=== PATIENT | male | born 1965 | race Caucasian/White ===

== ENCOUNTER 2020-06-08 16:04 | Emergency (ER) | payer MEDICAID ==
--- NOTE | 2020-06-08 17:05 | ED Physician Documentation ---
PD HPI LOWER EXT INJURY - Stated complaint Stated Complaint: L FOOT PX - Chief complaint Chief Complaint: Ext Problem - History obtained from History obtained from: Patient - History of Present Illness PD HPI LOW EXT INJURY LOCATION: Left, Foot Type of injury: Blunt / blow Where injury occurred: Home Timing - onset: Last night Worsened by: Moving, Palpating Associated symptoms: Swelling, Other (ecchymosis). No: Weakness, Numbness, Tingling Similar symptoms before: Diagnosis, No diagnosis - Additional information Additional information: 55-year-old male here with left foot pain bruising and swelling after accidentally tripping and striking his left foot on a hard concrete floor last night. He did not fall and he did not have any loss of consciousness. No history of previous injury to this foot. Unable to bear weight. Review of Systems Constitutional: denies: Fever, Chills Cardiac: denies: Chest pain / pressure, Palpitations Respiratory: denies: Dyspnea, Cough GI: denies: Abdominal Pain, Abdominal Swelling Skin: reports: Other (Ecchymosis left foot) Musculoskeletal: reports: Extremity pain, Extremity swelling PD PAST MEDICAL HISTORY - Past Medical History Past Medical History: No - Past Surgical History Past Surgical History: No - Present Medications Home Medications: Ambulatory Orders Medication Instructions Recorded Confirmed Hydrocodone/Acetaminophen 1 each PO BID PRN #14 tablet 06/08/20 [Hydrocodon-Acetaminophen 5-325] - Allergies Allergies/Adverse Reactions: Allergies Allergy/AdvReac Type Severity Reaction Status Date / Time No Known Drug Allergies Allergy Verified 06/08/20 16:13 - Social History Does the pt smoke?: No Smoking Status: Never smoker Does the pt have substance abuse?: No - Immunizations Immunizations are current?: No PD ED PE NORMAL - Cardiac Cardiac: RRR, No murmur - Respiratory Respiratory: No respiratory distress - Extremities Extremities: No deformity. No: No tenderness to palpate, Normal ROM s pain (T enderness ecchymosis swelling over dorsum of left foot predominantly over the fourth and fifth metatarsals. 2+ DP pulse full range of motion of ankle. Unable to bear weight on left foot ) Results - Vitals Vitals: Vital Signs - 24 hr 06/08/20 16:10 Temperature 36.3 C L Heart Rate 52 L Respiratory 18 Rate Blood Pressure 127/94 H O2 Saturation 97 Oxygen O2 Source Room air - Rads (name of study) left foot Radiology: EMP read indepedently (Transverse left fifth metatarsal fracture) PD MEDICAL DECISION MAKING - ED course Complexity details: reviewed results, d/w patient ED course: 55-year-old male here with left foot pain after accidentally striking his foot and tripping on the hard concrete floor. X-ray shows a transverse left fifth metatarsal fracture. Patient will be placed in a 3 sidedFoot splint. We will refer him to orthopedics for follow-up. Advised to be nonweightbearing. Emergent return precautions discussed for concerns of foot numbness or tingling. Of cold extremity or fevers. Departure - Departure Disposition: Home, Self Care Clinical Impression: Metatarsal fracture Qualifiers: Encounter type: initial encounter Metatarsal bone: fifth Fracture type: closed Fracture alignment: nondisplaced Laterality: left Qualified Code(s): S92.355A - Nondisplaced fracture of fifth metatarsal bone, left foot, initial encounter for closed fracture Condition: Stable Record reviewed to determine appropriate education?: Yes Instructions: ED Fx Foot Ch, ED Crutch Walking Follow-Up: [facility] [Provider Group] Prescriptions: Hydrocodone/Acetaminophen [Hydrocodon-Acetaminophen 5-325] 1 each PO BID PRN #14 tablet PRN Reason: pain Comments: Chase the fifth metatarsal in your left foot is fractured. We have placed you in a splint. This must remain clean and dry. If it gets wet return to the [facility] department to have it replaced. If you develop a cold foot, have numbness or tingling then presented again to have the splint reevaluated. You are to be nonweightbearing on this foot until evaluated by the orthopedic doctors. Please call tomorrow to schedule follow-up appointment. I would recommend ibuprofen or Tylenol [id number] for pain control. I have prescribed a very limited number of [place] to be used for severe pain only. Do not drive if taking this medication
--- NOTE | 2020-06-08 17:05 | XRAY Report ---
PROCEDURE: Foot 3 View LT INDICATIONS: kicked concrete; r/o fx TECHNIQUE: 3 views of the foot were acquired. COMPARISON: None. FINDINGS: Bones: No dislocations but there is a diagonal fracture involving the distal diaphysis of the fifth metatarsal, mildly displaced but without abnormal angulation. No additional injury elsewhere is seen. . No suspicious bony lesions. Soft tissues: No tibiotalar joint effusion. Achilles tendon appears normal. IMPRESSION: Mildly displaced distal fifth metatarsal diaphyseal acute fracture, diagonal, which does not appear t o extend into the articular surface of the MT-P joint. Reviewed by: Emiliano Arrieta MD on 06/08/2020 5:04 PM PDT Approved by: Emiliano Arrieta MD on 06/08/2020 5:04 PM PDT Station ID: [id number]
[2020-06-08 17:46] VITALS: BP 125/75
== END 2020-06-08 17:56 | disposition home or self-care (01) ==
LOC: ED 16:04
DX: S92.352A Displaced fracture of fifth metatarsal bone, left foot, initial encounter for closed fracture (principal); W22.09XA Striking against other stationary object, initial encounter; Y93.01 Activity, walking, marching and hiking; Y92.009 Unspecified place in unspecified non-institutional (private) residence as the place of occurrence of the external cause
CPT/HCPCS: 99283

== ENCOUNTER 2020-12-15 16:29 | Outpatient (CLI) | payer OTHER | END 2020-12-15 16:30 | disposition home or self-care (01) | LOC: COV 16:29 | PROVIDERS: ATTEND Family Medicine | DX: R05 Cough (principal); R09.81 Nasal congestion; J34.89 Other specified disorders of nose and nasal sinuses; Z20.822 Contact with and (suspected) exposure to COVID-19 ==

== ENCOUNTER 2021-05-08 11:24 | Emergency (ER) | payer OTHER ==
[2021-05-08] MEDS ORDERED: LIDOCAINE 1% 2 ML VIAL MC ONE (11:43)
[2021-05-08] MEDS ORDERED: TETANUS/DIPHTHERIA/PERTUSSIS 0.5 ML SYRINGE IM ONE (11:43)
[2021-05-08] MEDS ORDERED: BUFFERED LIDOCAINE 10 ML SYRINGE SUBQ STA (11:43)
[2021-05-08] MEDS ORDERED: cefTRIAXone 1 GM VIAL IM STA (11:43)
--- NOTE | 2021-05-08 11:45 | ED Physician Documentation ---
History of Present Illness - Stated complaint Stated Complaint: RT FINGER INJ - Chief complaint Chief Complaint: Laceration - Additonal information Additional information: 56-year-old male presents to the emergency department for evaluation of right index finger laceration sustained 48 hours ago when using hedge tremors at home. He has a laceration about 1 cm long right directly over the PIP. He is unsure how deep the laceration was. He cleansed it with hydrogen peroxide and has been applying Neosporin. However since then he has had progressive swelling and erythema of the finger with increased pain as well as swelling extending to the dorsum of the palm. Last tetanus 2012. Nondiabetic. Patient is right-hand dominant. Review of Systems Constitutional: reports: Reviewed and negative Ears: reports: Reviewed and negative Nose: reports: Reviewed and negative Throat: reports: Reviewed and negative Cardiac: reports: Reviewed and negative Respiratory: reports: Reviewed and negative GI: reports: Reviewed and negative : reports: Reviewed and negative Skin: reports: Laceration (s) (PIP right index finger) Musculoskeletal: reports: Reviewed and negative Neurologic: reports: Reviewed and negative PD PAST MEDICAL HISTORY - Past Surgical History Past Surgical History: No - Present Medications Home Medications: Ambulatory Orders Medication Instructions Recorded Confirmed Hydrocodone/Acetaminophen 1 each PO BID PRN #14 tablet 06/08/20 [Hydrocodon-Acetaminophen 5-325] cephALEXin [Keflex] 500 mg PO Q6H #28 05/08/21 - Allergies Allergies/Adverse Reactions: Allergies Allergy/AdvReac Type Severity Reaction Status Date / Time No Known Drug Allergies Allergy Verified 05/08/21 11:34 - Social History Does the pt smoke?: No Smoking Status: Never smoker Does the pt have substance abuse?: No - Immunizations Immunizations are current?: No PD ED PE EXPANDED - General General: Alert, No acute distress - Extremities Extremities: Right finger(s) (1.5 cm laceration over PIP right index finger with associated surrounding erythema and induration extending to the DIP and MCP. Swelling of dorsum of hand also included. Patient is able to flex and extend against resistance at MCP PIP and DIP joints) Results - Vitals Vitals: Vital Signs - 24 hr 05/08/21 11:29 Temperature 37.0 C Heart Rate 63 Respiratory 16 Rate Blood Pressure 132/82 H O2 Saturation 100 Oxygen O2 Source Room air - Rads (name of study) right finger Radiology: Final report received (Soft tissue swelling of the right index finger without associated fracture radial take soft tissue foreign body) Procedures - General procedure General procedure: Using 1% lidocaine a right index finger digital block was Achieved. Once the finger was properly anesthetized I was able to thoroughly wash and irrigate the laceration. Laceration was viewed to the bed no visible tendon injury seen. Wound was cleansed with Betadine saline and closed with bacitracin nonstick pad and gauze. Wound will require closure by secondary intention PD MEDICAL DECISION MAKING - ED course Complexity details: reviewed results, re-evaluated patient, d/w patient ED course: 56-year-old male presents the emergency department for right index finger pain and swelling at the site of a laceration sustained when using hedge tremors 48 hours ago. He is able to fully flex and extend the finger though it is painful. At this time however not suspicious of a tendon injury. His tetanus was updated today. The finger was properly anesthetized and the wound was thoroughly cleansed with Betadine chlorhexidine and irrigated thoroughly with saline. He was given ceftriaxone here in the emergency department and will be prescribed Keflex for 7 days. Wound will require closure by secondary intention. Emergent return precautions were discussed for failure of the wound to properly heal or increasing swelling and redness. Departure - Departure Disposition: 01 Home, Self Care Clinical Impression: Cellulitis of finger of right hand Finger laceration Qualifiers: Encounter type: initial encounter Finger: index finger Damage to nail status: without damage Foreign body presence: without foreign body Laterality: right Qualified Code(s): S61.210A - Laceration without foreign body of right index finger without damage to nail, initial encounter Condition: Stable Record reviewed to determine appropriate education?: Yes Instructions: Cellulitis Dc Prescriptions: cephALEXin [Keflex] 500 mg PO Q6H #28 Comments: Chase fuller the finger laceration has become infected. This is called cellulitis. You were given an injection of ceftriaxone here in the emergency department today. Please fill the prescription for the cephalexin and begin taking this evening as directed. You have increased pain because of the infection. With the appropriate antibiotics I do expect pain swelling and redness to be improving over the next 36 to 48 hours. If worsening or not improving please return to the ER for a second evaluation. Please keep your hand clean and dry. Wash the finger with warm soap and water once a day apply antibiotic ointment to the wound and then a bandage. This will require closure by secondary intention which just means the skin will have to heal itself. This will likely take 1 to 2 weeks
[2021-05-08] MEDS ORDERED: BACITRACIN ZINC OINT 1 PACKET TOP STA (12:05)
--- NOTE | 2021-05-08 12:14 | XRAY Report ---
PROCEDURE: Finger(s) RT INDICATIONS: laceration; eval for fx or FB TECHNIQUE: AP hand, 3 views of the right finger(s) acquired. COMPARISON: None FINDINGS: Bones: No acute fractures or dislocations. No suspicious bony lesions. Soft tissues: No suspicious soft tissue calcifications. There is soft tissue swelling. No radiopaque soft tissue foreign bodies. IMPRESSION: Soft tissue swelling of the right index finger without associated fracture or radiopaque soft tissue foreign body. Reviewed by: Eduard Barraza MD on 05/08/2021 12:13 PM PDT Approved by: Eduard Barraza MD on 05/08/2021 12:13 PM PDT Station ID: [id number]
[2021-05-08 12:41] VITALS: BP 124/54
== END 2021-05-08 12:38 | disposition home or self-care (01) ==
LOC: ED 11:24
DX: S61.210A Laceration without foreign body of right index finger without damage to nail, initial encounter (principal); L03.011 Cellulitis of right finger; W27.1XXA Contact with garden tool, initial encounter; Y93.H2 Activity, gardening and landscaping; Y92.007 Garden or yard of unspecified non-institutional (private) residence as the place of occurrence of the external cause; Z23 Encounter for immunization
CPT/HCPCS: 73140; 90471; 90715; 96372; 99283; A9270

== ENCOUNTER 2021-12-09 03:43 | Emergency (ER) | payer MEDICAID ==
[2021-12-09] MEDS ORDERED: KETOROLAC 60 MG/2 ML VIAL IM STA (04:42)
[2021-12-09] MEDS ORDERED: HYDROmorphone 1 MG/ML CARPUJECT IM STA ×2 (04:42→05:12)
--- NOTE | 2021-12-09 04:49 | ED Physician Documentation ---
History of Present Illness - Stated complaint Stated Complaint: LOW BACK/R LEG PX - Chief complaint Chief Complaint: Back Pain - History obtained from History obtained from: Patient - Additonal information Additional information: The patient comes to the emergency department chief complaint of exacerbation of right-sided sciatica. The patient has a history of this that has spanned some years and has had episodes intermittently. He states that most recently, he began to have slow, insidious onset of pain in his right sciatic joint over the course of some days, and that the symptoms peaked about 3 weeks ago. The patient states that the symptoms then began to lucrecia a little, but have waxed and waned since. Patient states that he felt as though his symptoms were flaring up again throughout the afternoon yesterday, and that he went to bed around midnight, would he woke up this morning just before 4:00, he was in quite a bit of pain again. The patient has a history of a back injury some years ago when he first began to have issues with sciatica, but denies any distinct injury this time. He states that he has previously done physical therapy to help relieve the sciatica and this has been beneficial. The patient states he is done a few stretches at home, and was also seen at [facility] a couple of nights ago and started on Flexeril, gabapentin, hydrocodone, and prednisone. He is h oping to get some kind of imaging tonight. He has not seen his primary care physician for this recent flareup. No recent MRI. No trouble controlling bowels or bladder. The pain shoots down his right leg, but is not associated with weakness or numbness. Review of Systems Ten Systems: 10 systems reviewed and negative Constitutional: reports: Reviewed and negative Eyes: reports: Reviewed and negative Ears: reports: Reviewed and negative Nose: reports: Reviewed and negative Throat: reports: Reviewed and negative Cardiac: reports: Reviewed and negative Respiratory: reports: Reviewed and negative GI: reports: Reviewed and negative : reports: Reviewed and negative Skin: reports: Reviewed and negative Musculoskeletal: reports: Extremity pain Neurologic: reports: Reviewed and negative Psychiatric: reports: Reviewed and negative Endocrine: reports: Reviewed and negative Immunocompromised: reports: Reviewed and negative PD PAST MEDICAL HISTORY - Past Medical History Past Medical History: Yes Cardiovascular: None Respiratory: None Neuro: None Endocrine/Autoimmune: None GI: None : None HEENT: None Psych: None Musculoskeletal: Other Derm: None Other Past Medical History: Sciatica - Past Surgical History Past Surgical History: No - Present Medications Home Medications: Ambulatory Orders Medication Instructions Recorded Confirmed Hydrocodone/Acetaminophen 1 each PO BID PRN #14 tablet 06/08/20 12/09/21 [Hydrocodon-Acetaminophen 5-325] Cyclobenzaprine [Flexeril] 10 mg PO TID PRN 12/09/21 12/09/21 Gabapentin [Neurontin] 300 mg PO TID 12/09/21 12/09/21 predniSONE [Deltasone] 20 mg PO [id number] 12/09/21 12/09/21 - Allergies Allergies/Adverse Reactions: Allergies Allergy/AdvReac Type Severity Reaction Status Date / Time No Known Drug Allergies Allergy Verified 12/09/21 03:51 - Social History Does the pt smoke?: No Smoking Status: Never smoker Does the pt have substance abuse?: No - Immunizations Immunizations are current?: No PD ED PE NORMAL - Vitals Vital signs reviewed: Yes - General General: Alert and oriented X 3, Well developed/nourished, Other (The patient appears uncomfortable, but otherwise in no apparent distress.) - HEENT HEENT: Atraumatic, PERRL, EOMI, Moist mucous membranes - Respiratory Respiratory: No respiratory distress - Abdomen Abdomen: Soft, Non tender, Non distended - Back Back: No CVA TTP, No spinal TTP - Derm Derm: Normal color, Warm and dry, No rash - Extremities Extremities: No deformity, Other (Tenderness to palpation over right sciatic joint. No tenderness of right leg at any level.) - Neuro Neuro: Alert and oriented X 3 - Psych Psych: Normal mood, Normal affect Results - Vitals Vitals: Vital Signs - 24 hr 12/09/21 03:47 Temperature 36.3 C L Heart Rate 83 Respiratory 18 Rate Blood Pressure 153/92 H O2 Saturation 95 Oxygen O2 Source Room air PD MEDICAL DECISION MAKING - ED course Complexity details: reviewed old records, considered differential, d/w patient ED course: I discussed with the patient that the best imaging study for his symptoms would be an MRI, and that we do not have MRI available on weekends or at night. Additionally, the patient does not have any symptoms consistent with emergent back pain, and would not qualify for emergency department MRI as it is. I have advised the patient that I can treat him symptomatically here, but that he should call his primary care physician first thing tomorrow morning, which is Friday, to set up an appointment to follow-up and speak about getting scheduled for MRI. We have discussed that the patient is already on significant amounts of medication at home, though his Vicodin is prescribed at 1 tablet every 8 kay rs, and he could increase both the dose and frequency of this. I have discussed with him that he can go up to 1 tablet every 4-6 hours or 2 tablets every 6 hours if needed. The patient states he has already increased his gabapentin to 600 mg 3 times daily instead of 300 mg 3 times daily at the direction of his doctor. We have discussed looking at the sciatica stretches again and trying to decompress his sciatic nerve to relieve some of the symptoms. We have discussed the usual indications for return. Departure - Departure Disposition: Home, Self Care Clinical Impression: Sciatica Qualifiers: Laterality: right Qualified Code(s): M54.31 - Sciatica, right side Condition: Stable Instructions: ED Sciatica Comments: You have been treated in the emergency department for your symptoms tonight. MRI would be the best test to further evaluate your symptoms, and unfortunately, we do not have MRI available at our hospital at night or on the weekends. In general, without symptoms of emergent cause or complication of back pain, we encourage you to work with your primary care physician to get MRI scheduled. To this end, please call your primary care physician's office tomorrow to schedule the soonest possible appointment to discuss getting this done. You may continue the medications you were given at [facility], as these are appropriate and have covered every category of medication we gave you from here. You may increase your hydrocodone frequency to every 4 hours or every 6 hours if needed. Special stretches for sciatica, which you can find on the Internet, it can also be helpful in decompressing the sciatic nerve bundle as it passes through the pelvis, and thereby, alleviate symptoms. You may also wish to speak with your primary care physician about going to physical therapy again.
[2021-12-09] MEDS ORDERED: DEXAMETHASONE 10 MG/ML VIAL IM STA (05:13)
[2021-12-09 06:03] VITALS: BP 159/64
== END 2021-12-09 06:05 | disposition home or self-care (01) ==
LOC: ED 03:43
DX: M54.31 Sciatica, right side (principal)
CPT/HCPCS: 96372; 99282; 99283; J1170